=== PATIENT | male | born 1965 | race Caucasian/White ===

== ENCOUNTER 2021-05-26 16:15 | Inpatient (IN) | payer SELFPAY ==
[~2021-05-26] VITALS: Ht 167.6 cm; Wt 74.8 kg
[2021-05-26] MEDS ORDERED: IBUPROFEN 400MG TABLET PO ONE (17:15)
[2021-05-26] MEDS ORDERED: LIDOCAINE HCL 1% 20ML VIAL (Pyxis) INJ INFIL STA (17:17)
[2021-05-26] MEDS ORDERED: KETOROLAC 30MG/ML VIAL IV STA (18:32)
[2021-05-26] MEDS ORDERED: CEFTRIAXONE 2 G PREMIX 50 ML IV ONE (19:00)
[2021-05-26] MEDS ORDERED: VANCOMYCIN 1G PREMIX 200 ML IV SCH (19:00)
[2021-05-26] MEDS ORDERED: VANCOMYCIN 1GM PMX (XELLIA) 200 ML IV NR (19:15)
[2021-05-26 19:26] LABS: BASOPHILS % 0.6 % (0.0-2.0); EOSINOPHILS % 1.2 % (0.0-5.0); HEMATOCRIT. 39.8 % (42.0-52.0); HEMOGLOBIN. 13.4 g/dL (14.0-18.0); LYMPHOCYTES % 20.2 % (20.0-50.0); MEAN CORPUSCULAR HEMOGLOBIN 30.9 pg (28.0-32.0); MEAN CORPUSCULAR VOLUME 91.4 fL (80.0-94.0); MEAN PLATELET VOLUME 7.5 fl (7.4-10.4); PLATELET 343 x1000/uL (130-400); RED BLOOD CELL COUNT 4.35 mill/uL (4.7-6.1); RED CELL DISTRIBUTION WIDTH 12.6 % (11.6-14.6)
[2021-05-26 19:36] LABS: CHLORIDE 106 mEq/L (98-107)
[2021-05-27 01:10] VITALS: BP 118/79
[2021-05-27] MEDS ORDERED: CLONIDINE 0.1MG TABLET PO PRN (02:30)
[2021-05-27] MEDS ORDERED: ONDANSETRON HCL 4MG/2ML INJ IV PRN (02:30)
[2021-05-27] MEDS ORDERED: NALOXONE HCL 0.4 MG/ML 1ML VIAL IV PRN (02:30)
[2021-05-27] MEDS ORDERED: ACETAMINOPHEN 325MG TABLET PO PRN (02:30)
[2021-05-27] MEDS ORDERED: MORPHINE SULFATE 2 MG/ML CPJ (NOT FOR IM USE) IV PRN (02:30)
[2021-05-27] MEDS ORDERED: TRAMADOL 50MG TABLET PO PRN (02:30)
[2021-05-27 04:00] VITALS: BP 109/70
[2021-05-27 07:07] LABS: BASOPHILS % 0.9 % (0.0-2.0); EOSINOPHILS % 2.1 % (0.0-5.0); HEMATOCRIT. 38.9 % (42.0-52.0); HEMOGLOBIN. 13.2 g/dL (14.0-18.0); LYMPHOCYTES % 26.2 % (20.0-50.0); MEAN CORPUSCULAR HEMOGLOBIN 31.1 pg (28.0-32.0); MEAN CORPUSCULAR VOLUME 91.4 fL (80.0-94.0); MEAN PLATELET VOLUME 7.2 fl (7.4-10.4); MONOCYTES % 7.4 % (2.0-8.0); NEUTROPHILS % 63.4 % (40.0-76.0); PLATELET 306 x1000/uL (130-400); RED BLOOD CELL COUNT 4.26 mill/uL (4.7-6.1); RED CELL DISTRIBUTION WIDTH 13.1 % (11.6-14.6)
[2021-05-27 07:26] LABS: CHLORIDE 106 mEq/L (98-107)
[2021-05-27 08:10] VITALS: BP 113/68
[2021-05-27] MEDS ORDERED: POTASSIUM CHLORIDE 20MEQ TABLET SR PO SCH (11:15)
[2021-05-27] MEDS: VANCOMYCIN 1.25GM PMX (XELLIA) 250 ML IV SCH ×2 (11:46→20:21)
[2021-05-27 12:30] VITALS: BP 100/55
[2021-05-27 16:00] VITALS: BP 99/60
[2021-05-27 20:00] VITALS: BP 112/64
[2021-05-27] MEDS: CEFTRIAXONE 1,000 MG in DEXTROSE 5% WATER 50 ML IV SCH (20:21)
[2021-05-28] VITALS: BP 115/60
[2021-05-28 04:00] VITALS: BP 113/75
[2021-05-28 06:26] LABS: BASOPHILS % 1.1 % (0.0-2.0); EOSINOPHILS % 3.1 % (0.0-5.0); HEMATOCRIT. 40.9 % (42.0-52.0); HEMOGLOBIN. 13.8 g/dL (14.0-18.0); LYMPHOCYTES % 31.4 % (20.0-50.0); MEAN CORPUSCULAR HEMOGLOBIN 30.9 pg (28.0-32.0); MEAN CORPUSCULAR VOLUME 91.9 fL (80.0-94.0); MEAN PLATELET VOLUME 7.5 fl (7.4-10.4); NEUTROPHILS % 56.4 % (40.0-76.0); PLATELET 308 x1000/uL (130-400); RED BLOOD CELL COUNT 4.46 mill/uL (4.7-6.1); RED CELL DISTRIBUTION WIDTH 12.8 % (11.6-14.6)
[2021-05-28 06:43] LABS: CHLORIDE 107 mEq/L (98-107)
[2021-05-28 08:00] VITALS: BP 107/69
[2021-05-28] MEDS: VANCOMYCIN 1.25GM PMX (XELLIA) 250 ML IV SCH ×2 (09:32→21:14)
[2021-05-28 12:00] VITALS: BP 127/67
[2021-05-28 16:15] VITALS: BP 108/58
[2021-05-28 19:25] LABS: C REACTIVE PROTEIN CARDIAC 1.3 mg/L (0.00-3.00)
[2021-05-28] MEDS: CEFTRIAXONE 1,000 MG in DEXTROSE 5% WATER 50 ML IV SCH (19:43)
[2021-05-28 20:00] VITALS: BP 111/25
[2021-05-29] VITALS: BP 104/60
[2021-05-29 04:00] VITALS: BP 149/80
[2021-05-29] MEDS ORDERED: TETANUS AND DIPHTHERIA TOX/PF 0.5ML SYR (ADULT) IM ONE (06:00)
[2021-05-29 08:00] VITALS: BP 103/67
[2021-05-29] MEDS: VANCOMYCIN 1.25GM PMX (XELLIA) 250 ML IV SCH (09:16)
[2021-05-29 12:00] VITALS: BP 94/50
[2021-05-29] MEDS ORDERED: FAMO20TA8 PO (15:55)
[2021-05-29] MEDS ORDERED: IBUP-2029 MT (15:55)
[2021-05-29] MEDS ORDERED: FAMO20TA8 MT ×2 (15:55)
[2021-05-29 16:00] VITALS: BP 98/54
[2021-05-29 16:31] VITALS: BP 98/34
[2021-05-29] MEDS ORDERED: DOXY-326 MT (22:02)
[2021-05-29] MEDS ORDERED: AMOX-424 MT (22:02)
== END 2021-05-29 17:46 | disposition home or self-care (01) | DRG 351 ==
LOC: ER 16:15 → MICUSO 20:27 → ENRESERV 23:06 → 8WST 05-27 01:50
PROVIDERS: ADMIT Family Medicine Adult Medicine; ATTEND Family Medicine Adult Medicine
PROC: 0S9C3ZZ Drainage of Right Knee Joint, Percutaneous Approach (ICD-10-PCS; principal; 2021-05-27)
DX: M25.461 Effusion, right knee (principal); E87.6 Hypokalemia; X58.XXXA Exposure to other specified factors, initial encounter; Z59.00 Homelessness unspecified; S89.91XD Unspecified injury of right lower leg, subsequent encounter; W18.39XD Other fall on same level, subsequent encounter
CPT/HCPCS: 36415; 73560; 73721; 80048; 80053; 80202; 83605; 84550; 85025; 85651; 86141; 90714; 99285; J0696; J1885; J3370; J3490; J7040; J7060